=== PATIENT | female | born 1945 | race Caucasian/White ===

== ENCOUNTER 2019-04-14 08:54 | Inpatient (IN) | payer MEDICARE, OTHER ==
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
[~2019-04-14 08:54] MED LIST: ASPIRIN325 MG PO; CATAPRES0.1 MG PO; CYCLOBENZAPRINE10 MG PO; ESTRACE1 MG PO; K-TAB10 MEQ PO; LASIX20 MG PO; NORVASC10 MG PO; PRAVACHOL40 MG PO; RENA-VITE TABL0.8 MG PO; TOPROL XL50 MG PO
[2019-04-14] MEDS ORDERED: DIFLUCAN100 MG PO (09:03)
[2019-04-14] MEDS ORDERED: PLAVIX75 MG PO (09:04)
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
[2019-04-14 09:40] LABS: BASOPHILS 0.3 % (0-2); EOSINOPHILS 0.6 % (0-7); HEMATOCRIT 44.6 % (36.0-48.0); HEMOGLOBIN 15.2 g/dL (12-16); IMMATURE GRANULOCYTES 0.2 % (0-5); LYMPHOCYTES 14.7 % (15-50); MCH 31.9 pg (26.0-34.0); MCHC 34.1 g/dL (31.0-37.0); MCV 93.7 fL (80.0-100.0); MEAN PLATELET VOLUME 9.7 fL (7.4-10.4); MONOCYTES 6.9 % (2-11); NEUTROPHILS 77.3 % (40-80); RBC 4.76 10x6/uL (4.00-5.40); RDW 13.3 % (11.5-14.5)
[2019-04-14 09:44] LABS: PLATELET COUNT 334 10x3/uL (130-400)
[2019-04-14 09:50] LABS: UDS - AMPHET NEGATIVE QUAL (NEGATIVE); UDS - BARB NEGATIVE QUAL (NEGATIVE); UDS - BENZO NEGATIVE QUAL (NEGATIVE); UDS - COCAINE NEGATIVE QUAL (NEGATIVE); UDS - OPIATE NEGATIVE QUAL (NEGATIVE); UDS - PCP NEGATIVE QUAL (NEGATIVE); UDS - THC NEGATIVE QUAL (NEGATIVE)
[2019-04-14 10:03] LABS: CALC OSMOLALITY 280 mosm/kg (275-300); CALCIUM 9.6 mg/dL (8.5-10.1); CHLORIDE - SERUM 101 mmol/L (98-107); CREATININE - SERUM 1.5 mg/dL (0.6-1.3); GLUCOSE 144 mg/dL (74-106); POTASSIUM - SERUM 3.4 mmol/L (3.5-5.1); SODIUM 139 mmol/L (136-145); UREA NITROGEN 12 mg/dL (7-18); eGFR NON AFRICAN AMERICAN 36 mL/min (90-120)
[2019-04-14 10:06] LABS: APTT 27.2 SECONDS (22.8-39.4); INR 0.97 (0.85-1.17); PROTIME 12.8 SECONDS (11.6-15.0)
[2019-04-14 10:17] LABS: BILIRUBIN NEGATIVE (NEGATIVE); GLUCOSE NEGATIVE (NEGATIVE); KETONE SMALL mg/dL (NEGATIVE); NITRITE NEGATIVE (NEGATIVE); SPECIFIC GRAVITY 1.015 (1.005-1.020)
[2019-04-14 10:19] LABS: BACTERIA MANY /hpf (NEGATIVE); EPITHELIAL CELLS 0-5 /hpf (0-5); RED CELLS - URINE 0-5 /hpf (0-5); WHITE CELLS - URINE 0-5 /hpf (NEGATIVE); YEAST <1+ /hpf (NONE SEEN)
[2019-04-14 10:20] LABS: ALKALINE PHOSPHATASE 95 U/L (30-120); ALT (SGPT) 25 U/L (10-68); BILIRUBIN - TOTAL 0.37 mg/dL (0.2-1.3); CKMB 0.8 U/L (0.0-3.6); CREATINE KINASE 43 UL (21-215); LIPASE 78 U/L (73-393); MAGNESIUM - SERUM 1.9 mg/dL (1.8-2.4); PRO BNP 138 pg/mL (0-125); PROTEIN - SERUM 8.5 g/dL (6.4-8.2); THYROID STIMULATING HORMONE 4.56 uIU/mL (0.36-3.74); TROPONIN-I < 0.017 ng/mL (0.000-0.060)
--- NOTE | 2019-04-14 12:37 | NUR ---
FAMILY REPORTS HALLUCINATIONS LAST NIGHT AND WAS STANDING OVER MALE FAMILY MEMBER WITH LEAD PIPE
[2019-04-14 16:41] VITALS: BP 119/68; BMI 45.9
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
[2019-04-14 18:29] LABS: CHOL - HDL RATIO 2.4 ratio (2.3-4.1); THYROID STIMULATING HORMONE 4.4 uIU/mL (0.36-3.74)
--- NOTE | 2019-04-14 18:29 | NUR ---
UNABLE TO PUT PHARMACY INTO COMPUTER. COMPANY IS [facility] [place] [place].
[2019-04-14 19:47] VITALS: BP 131/66
--- NOTE | 2019-04-15 04:23 | NUR ---
B) Patient is alert and oriented to person, place and time, calm and cooperative, no hallucinations noted this shift, I) Administered scheduled medications as ordered, monitored for safety, assisted with needs R) Mediation compliant, pleasant and social with staff and peers, P) Continue plan of care.
[2019-04-15 09:00] VITALS: BP 131/86
[2019-04-15 11:00] VITALS: Wt 102.7 kg
--- NOTE | 2019-04-15 13:57 | NUR ---
PATIENT CALM, ALERT, COOPERATIVE. NO ADVERSE BEHAVIORS NOTED, ENJOYS READING BOOKS. MEDS ADMIN PER ORDERS WITH COMPLETE MED COMPLIANCE NOTED. CONT POC DIRECTED.
[2019-04-15 20:07] VITALS: BP 145/74
--- NOTE | 2019-04-16 01:46 | NUR ---
B) Patient is alert and oriented to person, place and time, social with peers, follows instructions I) Administered scheduled medications as ordered, assisted with needs R) Mediation compliant, pleasant and friendly P) Continue plan of care.
[2019-04-16 06:30] LABS: BASOPHILS 0.5 % (0-2); EOSINOPHILS 5.5 % (0-7); HEMATOCRIT 38.2 % (36.0-48.0); HEMOGLOBIN 13.1 g/dL (12-16); IMMATURE GRANULOCYTES 0.2 % (0-5); LYMPHOCYTES 32.3 % (15-50); MCHC 34.3 g/dL (31.0-37.0); MCV 93.4 fL (80.0-100.0); MEAN PLATELET VOLUME 9.9 fL (7.4-10.4); MONOCYTES 7.4 % (2-11); NEUTROPHILS 54.1 % (40-80); PLATELET COUNT 307 10x3/uL (130-400); RBC 4.09 10x6/uL (4.00-5.40); RDW 13.7 % (11.5-14.5)
[2019-04-16 06:33] LABS: WBC 9.2 10x3/uL (4.8-10.8)
[2019-04-16 06:56] LABS: ALBUMIN 3.3 g/dL (3.4-5.0); ANION GAP 15.7 mmol/L (8-16); BILIRUBIN - TOTAL 0.37 mg/dL (0.2-1.3); CALCIUM 9.3 mg/dL (8.5-10.1); CREATININE - SERUM 1.5 mg/dL (0.6-1.3); POTASSIUM - SERUM 3.7 mmol/L (3.5-5.1); PROTEIN - SERUM 7.4 g/dL (6.4-8.2)
[2019-04-16 08:25] VITALS: BP 135/83
[2019-04-16 09:00] VITALS: BP 135/83
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
--- NOTE | 2019-04-16 19:30 | NUR ---
RECEIVED IN HALLWAY STANDING AT NURSES STATION SOCIALIZING WITH A PEER. CALM AND COOPERATIVE WITH CARE AND ASSESSMENT. NO SIGNS OF HALLUCINATIONS OR PARANOIA. ENCOURAGE TO EXPRESS NEEDS. RESTING IN BED WITH EYES CLOSED AT THIS TIME. CONTINUE PLAN OF CARE
[2019-04-17 07:53] VITALS: BP 105/55
--- NOTE | 2019-04-17 08:18 | NUR ---
RECEIVED IN HALLWAY OUTSIDE OF NURSES STATION. CALM AND COOPERATIVE WITH CARE AND ASSESSMENT. NO SIGNS OF HALLUCINATIONS. REDIRECT AND REORIENT NEEDED. EATING BREAKFAST AT THIS TIME. CONTINUE PLAN OF CARE.
[2019-04-17 20:41] VITALS: BP 132/60
--- NOTE | 2019-04-17 22:21 | NUR ---
RECEIVED PATIENT LAYING ON THE BED IN HER ROOM. ALERT AND ORIENTED. PLEASANT AND APPROPRIATE TOWARD STAFF. DENIES HALLUCINATIONS. ADMINISTER MEDS AND MONTOR COMPLIANCE. ENCOURAGE PATIENT TO REPORT ANY HALLUCINATIONS TO STAFF. MED COMPLIANT. NO HALLUCINATIONS OBSERVED NOR REPORTED BY PATIENT. CONTINUE POC AND PROVIDE SAFE ENVIRONMENT.
--- NOTE | 2019-04-17 22:24 | NUR ---
RECEIVED PATIENT IN HIS ROOM. ALERT AND ORIENTED. PLEASANT AND INTERACTIVE WITH STAFF. PATIENT ASKED FOR HIS MEDS BY NAME WITHOUT PROMPTING FROM STAFF. ADMINISTER MEDS AND MONITOR COMPLIANCE. ALLOW PATIENT THE CHANCE TO APPROACH STAFF AND ASK FOR MEDICATIONS AND THEN PROMPT PATIENT IF HE FAILS TO COMPLY. MEDS COMPLIANT. ASKED FOR EACH HS MED BY NAME WITH PROMPTING. CONTINUE POC AND PROVIDE SAFE ENVIRONMENT.
[2019-04-18 07:34] VITALS: BP 127/50
--- NOTE | 2019-04-18 10:53 | NUR ---
REC'D PT IN HALLWAY SOCIALIZING WITH PEERS. AWAKE AND ALERT. CALM AND COOPERATIVE WITH ASEESSMENT. PRESCRIBED MEDS PROVIDED NEEDED. MED COMPLIANT. NO HALLUCINATIONS NOTED AT THIS TIME. WILL CPOC.
--- NOTE | 2019-04-18 12:59 | PN ---
PATIENT:TERRANCE ROBLES MEDICAL RECORD: [id number] LOCATION:[facility] ADMISSION DATE: 04/14/19 PROGRESS NOTE DATE OF SERVICE: 04/17/2019 SUBJECTIVE: The patient's case was discussed with staff. She has no new complaint. OBJECTIVE: The patient is withdrawn, but easily and quickly interacts when asked to do so. She is denying paranoid thoughts currently, but she still has a quality of being somewhat suspicious and hypervigilant. ASSESSMENT: No change in diagnoses. PLAN: Current medicines have been reviewed and will be maintained. Her long-term prognosis is guarded. TRANSINT:[id number] Voice Confirmation ID: [id number] DOCUMENT ID: [id number] PEARL MOSS MD at 1259 CC: [id number] DICTATION DATE: 04/17/19 1611 CASCARA BARK CUTTER: 04/17/19 2119 ADM IN [facility] [address] [place] [address]
--- NOTE | 2019-04-18 19:03 | NUR ---
RECEIVED IN HALLWAY SITTING OUTSIDE OF NURSES STATION SOCIALIZING WITH PEERS. CALM AND COOPERATIVE WITH CARE AND ASSESSMENT. NO SIGNS OF HALLUCINATIONS OR PARANOIA. ENCOURAGE TO EXPRESS NEEDS. CONTINUES TO SOCIALIZE PEERS. CONTINUE PLAN OF CARE
[2019-04-18 20:22] VITALS: BP 168/52
[2019-04-19 09:55] VITALS: BP 108/51
--- NOTE | 2019-04-19 11:04 | PN ---
PATIENT:TERRANCE ROBLES MEDICAL RECORD: [id number] LOCATION:[facility] ADMISSION DATE: 04/14/19 PROGRESS NOTE DATE OF SERVICE: 04/18/2019 SUBJECTIVE: The patient's case was discussed with staff. She has no new complaint. OBJECTIVE: The patient is in good behavioral control. She denies any intent to harm herself or others. She is participating in treatment and denies overt psychotic symptoms. ASSESSMENT: No change in diagnoses. PLAN: The patient is not showing evidence of paranoia at this time. She will be started on antidepressant medication. Her long-term prognosis is guarded. TRANSINT:[id number] Voice Confirmation ID: [id number] DOCUMENT ID: [id number] PEARL MOSS MD at 1104 CC: [id number] DICTATION DATE: 04/18/19 1449 FIRE FIGHTER CRASH FIRE AND RESCUE: 04/18/19 1837 ADM IN [facility] [address] [place] [address]
--- NOTE | 2019-04-19 20:54 | NUR ---
B.) PT IS ALERT AND ORIENTED TO SELF AND SITUATION. SHE IS RECEIVED IN THE [place] SOCIALIZING WITH HER PEERS. SHE IS ABLE TO MAKE HER NEEDS KNOWN. SHE IS PLEASANT WITH STAFF. I.) PROVIDED PM MEDICATIONS PRESCRIBED. REDIECT PRN. R.) COMPLIANT WITH ALL MEDICATIONS. EASY TO REDIRECT. P.) WILL CONTINUE TO MONITOR.
[2019-04-19 23:25] VITALS: BP 167/75
[2019-04-20 07:00] VITALS: BP 137/58
[2019-04-20 11:00] LABS: ANION GAP 17.2 mmol/L (8-16); CARBON DIOXIDE 23.7 mmol/L (21.0-32.0); CREATININE - SERUM 1.5 mg/dL (0.6-1.3); POTASSIUM - SERUM 3.9 mmol/L (3.5-5.1)
--- NOTE | 2019-04-20 11:34 | PN ---
PATIENT:TERRANCE ROBLES MEDICAL RECORD: [id number] LOCATION:[facility] ADMISSION DATE: 04/14/19 PROGRESS NOTE DATE OF SERVICE: 04/19/2019 SUBJECTIVE: The patient's case was discussed with staff. She has no new complaint. OBJECTIVE: The patient is withdrawn, but not showing any evidence of paranoia at this time. She denies that she would seek to harm herself or others. ASSESSMENT: No change in diagnoses. PLAN: Supportive and educational interventions were made. Long-term prognosis is guarded. TRANSINT:[id number] Voice Confirmation ID: [id number] DOCUMENT ID: [id number] PEARL MOSS MD at 1134 CC: [id number] DICTATION DATE: 04/19/19 1143 VISITING PROFESSOR: 04/19/19 1255 ADM IN [facility] [address] [place] [address]
--- NOTE | 2019-04-20 11:54 | NUR ---
SW MET WITH PT TO DISCUSS DISCHARGE PLANNING NEEDS AND UTILIZATION OF COPING SKILLS. PT DENIES FEELING PARANOID AT THIS TIME. PT STATED SHE ONLY THOUGHT SOMEONE WAS GOING TO KILL HER BECAUSE SHE SAW THE [employer] PLATE. PT REPORTED HAVING ANXIETY AT THE TIME AND SUFFERING WITH DEPRESSION YEARS AGO WHEN HER . PT STATED SHE COULD READ A BOOK, INTERACT WITH OTHERS MORE, USE DEEP BREATHING EXERCISES, OR LISTEN TO MUSIC. PT WAS WILLING TO GO TO OUT PATIENT TREATMENT WHICH HER FAMILY WAS PUSHING FOR HER TO DO. PT WILL CONTINUE TO WORK TOWARDS GOALS AND OBJECTIVES TO STABILIZE AND DISCHARGE. ENTRY FROM 04/19
--- NOTE | 2019-04-20 12:18 | NUR ---
Nutrition Follow-up: Chart reviewed, noted pt with pedal edema. Diet: Renal ADA PO intake: ~88% average x last 9 meals Last BM: 04/19/19 WT: 217.6# (04/16/19); Admit WT: 215#-stated, 235#-wheelchair (04/14/19) Meds reviewed. Labs noted: GFR 36(L), BUN 32(H), Cr 1.5(H), Glu 139(H) Inconsistencies in recorded weights noted but this may be 2/2 fluid status. Will continue to monitor wt trend and PO intake. Recommend continue current diet. RD following.
--- NOTE | 2019-04-20 13:26 | NUR ---
CALM, COOPERATIVE, ENJOYS INTERACTING WITH OTHER PATIENTS. CURRENTLY WORKING ON [employer] PUZZLE WITH ANOTHER PATIENT. MEDS ADMIN PER ORDERS WITH COMPLETE MED COMPLIANCE NOTED. NO ADVERSE BEHAVIORS NOTED. CONT. PLAN OF CARE.
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
[2019-04-20 19:30] VITALS: BP 147/70
--- NOTE | 2019-04-20 23:26 | NUR ---
B)RECEIVED SITTING IN A CHAIR AT THE NURSES STATION INTERACTING WITH PEERS. ALERT AND ORIENTED. PLEASANT AND COOPERATIVE. RELATES HAD A GOOD DAY. I)ADMINISTER MEDS AND MONITOR COMPLIANCE. OBSERVE FOR HALLUCINATIONS AND ENCOURAGE PATIENT TO REPORT TO STAFF IF SHE IS HAVING HALLUCINATIONS. R)MED COMPLIANT. NO HALLUCINATIONS NOTED AND PATIENT DID NOT REPORT TO STAFF ANY HALLUCINATIONS ONLY SHE HAD A GOOD DAY. P)CONTINUE POC AND PROVIDE SAFE ENVIRONMENT.
[2019-04-21 09:45] VITALS: BP 126/71
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
[2019-04-21 20:00] VITALS: BP 136/76
--- NOTE | 2019-04-21 21:00 | NUR ---
B)RECEIVED PATIENT SITTING AT THE NURSE'S STATION INTERACTING WITH STAFF AND PEERS. ALERT AND ORIENTED. I)ADMINISTER MEDS AND MONITOR COMPLIANCE. ENCOURAGE PATEINT TO TALK WITH STAFF IF HAVING HALLUCINATIONS. R)MED COMPLIANT. NO HALLUCINATIONS NOTED NOR REPORTED. P)CONTINUE POC AND PROVIDE SAFE ENVIRONMENT.
--- NOTE | 2019-04-22 08:14 | NUR ---
The patient is pleasant she denies any paranoia and she is calm, she slept well last night 8.5 hours. She ambulates independently. She does have generalized lower extremity edema, and her hands are edematous. She denies any pain. Provide prescribed meds. The patient is compliant with meds. Continue POC.
[2019-04-22 08:24] VITALS: BP 102/49
--- NOTE | 2019-04-22 11:26 | PN ---
PATIENT:TERRANCE ROBLES MEDICAL RECORD: [id number] LOCATION:E[facility] ADMISSION DATE: 04/14/19 PROGRESS NOTE DATE OF SERVICE: 04/20/2019 SUBJECTIVE: The patient's case was discussed with staff. She has no new complaint. OBJECTIVE: The patient had a meeting with her family and the protective services social worker yesterday. Apparently, it went reasonably well. However, I have not spoken with the treatment team to confirm that. She has a depressed mood, but it is improving. She is showing no evidence of psychotic symptoms at this point. I do not think it is appropriate or indicated to start her on an antidepressant medication given the absence of those symptoms. This is in spite of this symptoms being present and bringing her to the hospital. ASSESSMENT: No change in diagnoses. PLAN: The patient's Effexor is going to be increased. Her long-term prognosis is guarded. TRANSINT:[id number] Voice Confirmation ID: [id number] DOCUMENT ID: [id number] PEARL MOSS MD at 1126 CC: [id number] DICTATION DATE: 04/21/19 0738 CEMENTING BULK MATERIAL OPERATOR: 04/21/19 0749 ADM IN [facility] [address] [place] [id number]
[2019-04-22 19:27] VITALS: BP 151/64
--- NOTE | 2019-04-22 22:27 | NUR ---
B)RECEIVED PATIENT SITTING IN THE DINING ROOM. ALERT AND ORIENTED. INTERACTIVE WITH PEERS AND STAFF. COOPERATIVE WITH UNIT MILEU. I)ADMINISTER MEDS AND MONITOR COMPLIANCE. ENCOURAGE PATIENT TO NOTIFY STAFF IF HAVING HALLUNICATIONS. R)MED COMPLIANT. NO HALLUCINATIONS NOTED NOR REPORTED BY PATIENT. P)CONTINUE POC AND PROVIDE SAFE ENVIRONMENT.
--- NOTE | 2019-04-23 11:01 | PN ---
PATIENT:TERRANCE ROBLES MEDICAL RECORD: [id number] LOCATION:EPI [facility] ADMISSION DATE: 04/14/19 PROGRESS NOTE DATE OF SERVICE: 04/22/2019 SUBJECTIVE: The patient's case was discussed with staff. She has no new complaint. OBJECTIVE: The patient has had no further psychotic symptoms. She is fully oriented. Apparently, there was a family session with her and the social media job titles and apparently that went well. ASSESSMENT: Major depression. PLAN: I anticipate the patient can be transitioned out of the hospital soon. Long-term prognosis is guarded and outpatient mental health will be scheduled. TRANSINT:[id number] Voice Confirmation ID: [id number] DOCUMENT ID: [id number] PEARL MOSS MD at 1101 CC: [id number] DICTATION DATE: 04/22/19 1229 UNDERWRITING CLERK: 04/22/19 1243 ADM IN [facility] [address] [place] [address]
[2019-04-23 11:19] VITALS: BP 140/60
--- NOTE | 2019-04-23 18:57 | NUR ---
RECEIVED IN HALLWAY STANDING AT [facility]. CALM AND COOPERATIVE WITH CARE AND ASSESSMENT. NO SIGNS OF HALLUCINATIONS. NO SIGNS OF PARANIOA. ENCOURAGE TO EXPRESS NEEDS. RESTING IN BED WITH EYES OPEN AT THIS TIME. CONTINUE PLAN OF CARE.
[2019-04-24 08:58] VITALS: BP 127/52
--- NOTE | 2019-04-24 09:40 | NUR ---
RECEIVED IN HALLWAY OUTSIDE OF NURSES STATION. CALM AND COOPERATIVE WITH CARE AND ASSESSMEENT. NO SIGNS OF HALLUCINATIONS. REDIRECT AND REORIENT NEEDED. SOCIALIZING WITH OTHER PATIENTS AT THIS TIME. CONTINUE PLAN OF CARE.
--- NOTE | 2019-04-24 10:58 | PN ---
PATIENT:TERRANCE ROBLES MEDICAL RECORD: [id number] LOCATION:[facility] ADMISSION DATE: 04/14/19 PROGRESS NOTE DATE OF SERVICE: 04/23/2019 SUBJECTIVE: The patient's case was discussed with staff. She has no new complaint. OBJECTIVE: The patient is in good behavioral control with poor insight about her situation. ASSESSMENT: No change in diagnoses. PLAN: Current medicines have been reviewed. Again, the patient is having no psychotic symptoms. I am not going to give her an antipsychotic based on the fact that the psychotic symptoms that she presented with are no longer present and are most likely related to acute stress. I am, however, I am going to increase her Effexor to 150 mg daily. TRANSINT:[id number] Voice Confirmation ID: [id number] DOCUMENT ID: [id number] PEARL MOSS MD at 1058 CC: [id number] DICTATION DATE: 04/23/19 1105 CAR WHACKER: 04/23/19 1146 ADM IN [place] [id number] [place] [id number]
[2019-04-24 19:55] VITALS: BP 144/58
--- NOTE | 2019-04-24 20:41 | NUR ---
B.) PT IS ALERT AND ORIENTED TO X4. SHE IS ABLE TO MAKE HER NEEDS KNOWN AND AMBULATE WITHOUT ASSISTANCE. SHE IS PLEASANT WITH STAFF AND PEERS. NO DISTRESS NOTED. NO HALLUCINATIONS OR PARANOIA NOTED. I.) PROVIDED PM MEDICATIONS PRESCRIBED. R.) COMPLIANT WITH ALL MEDICATIONS. P.) WILL CONTINUE TO MONITOR.
[2019-04-25 08:12] VITALS: BP 111/55
--- NOTE | 2019-04-25 11:02 | PN ---
PATIENT:TERRANCE ROBLES MEDICAL RECORD: [id number] LOCATION:EPI [facility]112 ADMISSION DATE: 04/14/19 PROGRESS NOTE DATE OF SERVICE: 04/24/2019 SUBJECTIVE: The patient's case was discussed with staff. She has no new complaint. OBJECTIVE: The patient is tolerating her Effexor well. She is a little withdrawn, but not in a way that is overly concerned, that causes me to have an excessive amount of concern. She is not having any psychotic symptoms. ASSESSMENT: No change in diagnoses. PLAN: The patient will be maintained on current medications. I anticipate she can be transitioned out of the hospital soon if this level of improvement continues. TRANSINT:[id number] Voice Confirmation ID: [id number] DOCUMENT ID: [id number] PEARL MOSS MD at 1102 CC: [id number] DICTATION DATE: 04/24/19 1352 RUFFLER: 04/24/19 2310 ADM IN [place] [address] [place] [address]
--- NOTE | 2019-04-25 20:54 | NUR ---
RECEIVED IN HALLWAY OUTSIDE OF NURSES STAION SITTING TALKING WITH PEERS. CALM AND COOPERATIVE WITH CARE AND ASSESSMENT. NO SIGNS OF HALLUCINATIONS OR PARANOIA. ENCOURAGE TO EXPRESS NEEDS. RESTING IN BED WITH EYES CLOSED AT THIS TIME. CONTINUE PLAN OF CARE
[2019-04-25 22:07] VITALS: BP 137/62
[2019-04-26 09:00] VITALS: BP 117/58
--- NOTE | 2019-04-26 14:18 | PN ---
PATIENT:TERRANCE ROBLES MEDICAL RECORD: [id number] LOCATION:[facility] ADMISSION DATE: 04/14/19 PROGRESS NOTE DATE OF SERVICE: 04/25/2019 SUBJECTIVE: The patient's case was discussed with staff. She has no new complaint. OBJECTIVE: The patient is in good behavioral control. She is tolerating her medicines well. She has not had any overt psychotic symptoms. ASSESSMENT: Dementia. PLAN: The patient will be treated with current medicines, which I have reviewed. Her long-term prognosis is guarded. TRANSINT:[id number] Voice Confirmation ID: [id number] DOCUMENT ID: [id number] PEARL MOSS MD at 1418 CC: [id number] DICTATION DATE: 04/25/19 1240 NETWORK CONTRACTOR: 04/25/[id number] ADM IN [facility] [id number] [place] [address]
[2019-04-26] MEDS ORDERED: DONEPEZIL HCL5 MG PO (15:28)
[2019-04-26] MEDS ORDERED: ASPIRIN325 MG PO (15:28)
[2019-04-26] MEDS ORDERED: EFFEXOR37.5 MG PO (15:28)
[2019-04-26] MEDS ORDERED: PEPCID PO (15:28)
--- NOTE | 2019-04-26 16:16 | NUR ---
ALERT, CALM, ORIENTED THIS SHIFT. LOOKING FORWARD TO DISCHARGE TOMORROW. NO ADVERSE BEHAVIORS NOTED. MEDS ADMIN WITH COMPLETE MED COMPLIANCE NOTED. CONT PLAN OF CARE.
--- NOTE | 2019-04-26 20:42 | NUR ---
PATIENT IS QUIET, "STAND-OFFISH", CAN MAKE NEEDS KNOWN, NO HALLUCINATIONS NOTED. COMPLIANT WITH MEDS. WILL FOLLOW POC
[2019-04-26 22:02] VITALS: BP 140/61
--- NOTE | 2019-04-27 08:38 | NUR ---
The patient is awake and alert, she is pleasant and happy to get to go home today. Will fax all paperwork to her PCP, and set up an appointment. The patient is ambulating independently. She denies depression, denies S.I. and H.I. Provide prescribed meds. Encourage group participation. The patient is compliant with meds. Continue D/C plan.
--- NOTE | 2019-04-27 09:27 | PN ---
PATIENT:TERRANCE ROBLES MEDICAL RECORD: [id number] LOCATION:[facility] ADMISSION DATE: 04/14/19 PROGRESS NOTE DATE OF SERVICE: 04/26/2019 SUBJECTIVE: The patient's case was discussed with staff. She has no new complaint. OBJECTIVE: The patient has a depressed mood, but only mildly depressed. She has no paranoid symptoms. No psychotic symptoms and certainly no thoughts of harming herself or others. She is tolerating her medications well. ASSESSMENT: No change in diagnoses. PLAN: The patient will be transitioned out of the hospital tomorrow. Her long-term prognosis is guarded. TRANSINT:[id number] Voice Confirmation ID: [id number] DOCUMENT ID: [id number] PEARL MOSS MD at 0927 CC: [id number] DICTATION DATE: 04/26/19 1527 FAMILY DENTIST: 04/26/19 1802 ADM IN [facility] [id number] [place] [address]
--- NOTE | 2019-04-27 09:51 | NUR ---
The patient is packed and ready to go home.
[2019-04-27 10:26] VITALS: BP 134/54
--- NOTE | 2019-04-27 10:37 | NUR ---
PATIENT DISCHARGE HOME WITH FAMILY. PT STABLE AND HAPPY AT TIME OF DISCHARGE. PT SAID GOODBYE TO PEERS. PT BELONGINGS SENT WITH PT AND CORRECT. PT HAD AM MEDICATIONS. PT APPOINTMENTS SET UP FOR FOLLOW UP. PT CHANGED SHOES AND DONNED JACKET FOR DISCHARGE.
--- NOTE | 2019-04-28 13:40 | PN ---
PATIENT:TERRANCE ROBLES MEDICAL RECORD: [id number] LOCATION:[facility] ADMISSION DATE: 04/14/19 PROGRESS NOTE DATE OF SERVICE: 04/27/2019 SUBJECTIVE: The patient's case was discussed with staff. She has no new complaint. OBJECTIVE: The patient denies intent to harm herself or others. She is tolerating her medicines well. She has limited insight about her situation. ASSESSMENT: Dementia. PLAN: The patient will be transitioned out of the hospital today. She is in good behavioral control. Followup will be with the [facility]. There is certainly no evidence of acute or direct dangerousness and she will be receiving a substantial support from family and I think if they follow through with this, the amount of supervision will be adequate for the time being. TRANSINT:[id number] Voice Confirmation ID: [id number] DOCUMENT ID: [id number] PEARL MOSS MD at 1340 CC: [id number] DICTATION DATE: 04/27/19 1014 PLATER HOT DIP: 04/27/19 1505 DIS IN 04/27/19 [facility] [address] [place] [address]
== END 2019-04-27 10:15 | disposition home or self-care (01) | DRG 57 ==
LOC: D.ER 08:54 → D.PSYCH 13:40
PROVIDERS: Family Medicine; Psychiatry & Neurology Psychiatry; ADMIT Psychiatry & Neurology Psychiatry; ATTEND Psychiatry & Neurology Psychiatry
DX: G30.1 Alzheimer's disease with late onset (principal); F02.81 Dementia in other diseases classified elsewhere, unspecified severity, with behavioral disturbance; I73.9 Peripheral vascular disease, unspecified; G43.909 Migraine, unspecified, not intractable, without status migrainosus; I12.9 Hypertensive chronic kidney disease with stage 1 through stage 4 chronic kidney disease, or unspecified chronic kidney disease; N18.3 Chronic kidney disease, stage 3 (moderate); R41.82 Altered mental status, unspecified; M19.90 Unspecified osteoarthritis, unspecified site; E78.5 Hyperlipidemia, unspecified